=== PATIENT | female | born 1955 | race Caucasian/White ===

== ENCOUNTER 2021-06-23 06:33 | Day surgery (SDC) | payer OTHER, SELFPAY ==
[~2021-06-23] VITALS: Ht 157.5 cm; Wt 74.8 kg
[2021-06-23] MEDS ORDERED: fentaNYL citrate 0.05 MG/ML VIAL ONE (07:51)
[2021-06-23] MEDS ORDERED: MIDAZOLAM 5 MG/5 ML VIAL ONE (07:52)
[2021-06-23] MEDS ORDERED: MIDAZOLAM 2 MG/2 ML VIAL IVP SCH (08:30)
== END 2021-06-23 08:55 | disposition home or self-care (01) ==
LOC: MDS 06:33 → MMU 06:35 → MDS 08:55
PROVIDERS: ATTEND Internal Medicine Gastroenterology
DX: R10.13 Epigastric pain (principal); R14.0 Abdominal distension (gaseous); Z79.899 Other long term (current) drug therapy; Z20.822 Contact with and (suspected) exposure to COVID-19
CPT/HCPCS: 36415; 43239; 86677; 87426; J2250; J3010